=== PATIENT | male | born 1980 | race Caucasian/White ===

== ENCOUNTER 2018-09-17 15:51 | Emergency (ER) | payer SELFPAY ==
--- NOTE | 2018-09-17 16:39 | ED Physician Documentation ---
Flank Pain - HISTORIAN Historian: patient - HPI Stated Complaint: nausea, flank pain, Right ear pain Chief Complaint: Flank Pain Additional Information: Patient presents with a 2 month history of right ear pain. He has been seen several times for this with a prescription of cortiosporin and amoxicillin. He has a history of frequent otitis externa and ear wax build up. He has also been having running nose and nasal congestion. A couple of days ago he started having burning with urination and right flank pain. He has a history of renal stones. [place]. Onset: days ago (2) Duration: waxing, waning Timing: still present Severity: moderate Quality: cramping (3/10), sharp (7/10) Associated Symptoms: chills, nausea, vomiting, back pain (right flank pain). denies: diarrhea, sweating, chest pain, testicular pain Exacerbated by: other (urination) Relieved by: nothing - ROS CONST: no problems GI/: none, problems urinating. denies: black stools, bloody urine, bloody stools CVS/RESP: denies: shortness of breath, hurts to breath, cough EYES/ENT: none MS/SKIN/LYMPH: none NEURO/PSYCH: headache, dizziness - SOCIAL HX Smoking History: non-smoker Alcohol Use: none Drug Use: none - FAMILY HX Family History: no significant history - PAST HX Past History: kidney stones Ischemic Bowel Risk Factors: none Other History: none Surgeries/Procedures: none Medications: none - VITAL SIGNS Vital Signs: Vital Signs Temp Pulse Resp BP Pulse Ox 97.9 F 89 16 125/86 98 09/17/18 15:52 09/17/18 15:52 09/17/18 15:52 09/17/18 15:52 09/17/18 15:52 - REVIEWED ASSESSMENTS Nursing Assessment Reviewed: Yes Vitals Reviewed: Yes ED Results Lab/Radiology - Lab Results Lab Results: UA 2+blood, neg nitrite, neg leukocytes - Radiology Radiology Impressions: CT of the abdomen and pelvis without contrast CLINICAL HISTORY: Right flank pain for 1 day. History of kidney stones. TECHNIQUE: CT of the abdomen pelvis is performed without oral or intravenous administration of contrast. Sagittal and coronal reconstructions are performed by the technologist. FINDINGS: Visualized lung bases are clear. The liver and spleen demonstrate normal attenuation without focal defect. The gallbladder is normally distended. There is no pancreatic or adrenal abnormality. Kidneys are of normal size, shape and position. There is no hydronephrosis or perinephric stranding. There is no evident renal or ureteral calculus. The bladder is unremarkable. Gas and stool are present throughout the colon. There is a paucity of intra- abdominal fat that makes delineation of adjacent bowel structures more difficult. The appendix is visualized and is within normal limits. There is no free fluid in the pelvis or abdomen. IMPRESSION: Negative noncontrast study. No CT explanation for the patient's symptoms. Electronically signed on Sep 17, 2018 5:02:41 PM CDT by: Chino Jacobson - Orders Orders: ED Orders Category Date Time Status Place IV Lock 1T Care 09/17/18 16:[address] ABD & PELVIS W/O CON Stat Exams 09/17/18 Ordered CBC/PLATELET/DIFF Routine Lab 09/17/18 Ordered CMP [CMP] Routine Lab 09/17/18 Ordered Ondansetron HCl Rapdis [Zofran Odt] Med 09/17/18 16:37 Once 4 mg PO NOW ONE traMADol HCL [Ultram] Med 09/17/18 16:37 Once 50 mg PO NOW ONE Abdominal Pain Physical Exam - Physical Exam General Appearance: no acute distress, alert EENT: LAUREN, pharyngeal erythema, abnormal TM (Left TM occluded by ear wax. Right TM with air fluid level. No evidence of infection. ) NECK: normal inspection, supple RESPIRATORY: no resp distress, breath sounds normal CVS: reg rate & rhythm, heart sounds normal ABDOMEN: soft MALE GENITAL: other (deferred) RECTAL: deferred BACK: CVA tenderness (R) SKIN: warm/dry, normal color EXTREMITIES: non-tender, normal range of motion, no edema NEURO: oriented X3, motor nml Vital Signs: Vital Signs Temp Pulse Resp BP Pulse Ox 97.9 F 89 16 125/86 98 09/17/18 15:52 09/17/18 15:52 09/17/18 15:52 09/17/18 15:52 09/17/18 15:52 Discharge Clincal Impression: Seasonal allergies Excessive ear wax Qualifiers: Laterality: left Qualified Code(s): H61.22 - Impacted cerumen, left ear Referrals: Primary Doctor,No [Primary Care Provider] - 2 Days Additional Instructions: Take daily antihistamine such as Claritin, Florinda, Zyrtec, Xyzal. Add in chlor-trimeton in the evening. Nasal steroid spray such as Nasocort or Nasonex could help too. Take a decongestant if you get dizzy. Use Swimmer's Ear in both ears (over the counter) after swimming/showering. Condition: Stable Disposition: 01 HOME, SELF-CARE Decision to Admit: NO Date of Decison to Admit: 09/17/18 Decision Time: 17:23
[2018-09-17] MEDS: 0.9 % SODIUM CHLORIDE 1,000 ML IV ONE (16:40)
[2018-09-17] MEDS: traMADol HCL 50 MG TABLET PO ONE (16:40)
[2018-09-17] MEDS: ONDANSETRON HCL 4 MG TAB.RAPDIS PO ONE (16:42)
[2018-09-17 17:02] LABS: MEAN CORPUSCULAR HEMOGLOBIN 30.7 pg (28.0-34.0)
[2018-09-17 17:03] LABS: BASOPHILS % 0.2 (0.0-1.5); EOSINOPHILS % 1.8 % (0.0-6.8); MONOCYTES % 5.2 % (0.0-11.0); NEUTROPHILS # 3.8 # k/uL (1.4-7.7)
[2018-09-17 17:11] LABS: eGFR (Non-African) > 60
--- NOTE | 2018-09-17 17:16 | Diagnostic Imaging Report ---
LENNY HIGGINSEY [facility] [address] [place], [place]. [address] Report Submission Date: Sep 17, 2018 5:02:41 PM CDT Patient Study Name: MATIAS SIMON Date: Sep 17, 2018 4:45:37 PM CDT Modality Type: CT Gender: M Description: CT ABD PELVIS W/O CO : 82 Institution: [facility] Physician: LENNY CASEY CT of the abdomen and pelvis without contrast CLINICAL HISTORY: Right flank pain for 1 day. History of kidney stones. TECHNIQUE: CT of the abdomen pelvis is performed without oral or intravenous administration of contrast. Sagittal and coronal reconstructions are performed by the technologist. FINDINGS: Visualized lung bases are clear. The liver and spleen demonstrate normal attenuation without focal defect. The gallbladder is normally distended. There is no pancreatic or adrenal abnormality. Kidneys are of normal size, shape and position. There is no hydronephrosis or perinephric stranding. There is no evident renal or ureteral calculus. The bladder is unremarkable. Gas and stool are present throughout the colon. There is a paucity of intra- abdominal fat that makes delineation of adjacent bowel structures more difficult. The appendix is visualized and is within normal limits. There is no free fluid in the pelvis or abdomen. IMPRESSION: Negative noncontrast study. No CT explanation for the patient's symptoms. Electronically signed on Sep 17, 2018 5:02:41 PM CDT by: Chino DOWNEY
[2018-09-17 17:42] VITALS: BP 126/74
== END 2018-09-17 17:40 | disposition home or self-care (01) ==
LOC: ED 15:51
DX: R10.9 Unspecified abdominal pain (principal); Z87.442 Personal history of urinary calculi; H61.22 Impacted cerumen, left ear; J30.2 Other seasonal allergic rhinitis
CPT/HCPCS: 74176; 80053; 85025; A9270; J7030; 96365; 99284; S1016